=== PATIENT | female | born 1990 | race Caucasian/White ===

== ENCOUNTER → 2016-09-20 | Outpatient (CLI) | payer OTHER ==
[~2016-09-20] MED LIST: ACET-1256 PO; IBUP-1451 PO; PRLSR20 PO
== END | disposition home or self-care (01) ==
LOC: C.LABSPEC 17:17
PROVIDERS: ATTEND Nurse Practitioner Family
DX: R31.9 Hematuria, unspecified (principal)

== ENCOUNTER → 2016-09-22 | Outpatient (CLI) | payer OTHER ==
--- NOTE | 2016-09-22 17:37 | DIAGNOSTIC IMAGING REPORT ---
KUB CLINICAL HISTORY: R10.9 Right flank pain nephrocalcinosis COMPARISON STUDY: No previous studies for comparison. FINDINGS: The soft tissues, psoas shadows, renal outlines and intestinal gas pattern appear normal. There is no evidence for bowel obstruction. No abnormal abdominal calcifications are seen. IMPRESSION: Normal study. Electronically signed by: Santi Willis M.D. 09/22/2016 5:35 PM Dictated Date/Time: 09/22/2016 5:34 PM
== END | disposition home or self-care (01) ==
LOC: C.RAD 17:19
PROVIDERS: ATTEND Nurse Practitioner Adult Health
DX: R10.9 Unspecified abdominal pain (principal)

== ENCOUNTER 2016-09-23 14:38 | Emergency (ER) | payer OTHER ==
[~2016-09-23] VITALS: Ht 172.7 cm; Wt 97.0 kg
[2016-09-23 14:42] VITALS: TEMP 36.6; Ht 172.7 cm; Wt 97.0 kg
[2016-09-23] MEDS ORDERED: SODIUM CHLORIDE 0.9% 1000ML 1,000 ML IV STA (14:58)
[2016-09-23] MEDS ORDERED: ONDANSETRON INJ 2 MG/ML 2 ML VIAL IV STA (14:58)
[2016-09-23] MEDS ORDERED: ACET-1256 PO (15:33)
[2016-09-23] MEDS ORDERED: IBUP-1451 PO (15:33)
[2016-09-23 15:36] LABS: BASO % 0.5 %; BASO ABS # 0.02 K/uL (0-0.2); COMPLETE YES; HEMATOCRIT 35.6 % (37-47); IG% 0.2 %; LYMPH % 20.9 %; LYMPH ABS # 0.92 K/uL (1.2-3.4); MEAN CELL VOLUME 86.8 fL (80-100); MEAN CORPUSCULAR HEMOGLOBIN 28.5 pg (25-34); MEAN CORPUSCULAR HGB CONC 32.9 g/dl (32-36); MEAN PLATELET VOLUME 12.1 fL (7.4-10.4); MONO % 6.8 %; NEUT % 69.6 %; PLATELET COUNT 243 K/uL (130-400)
[2016-09-23 15:55] LABS: ALT/SGPT 57 U/L (12-78); AST/SGOT 27 U/L (15-37); BLOOD UREA NITROGEN 19 mg/dl (7-18); BUN/CREATININE RATIO 25.3 (10-20); CALCIUM 8.7 mg/dl (8.5-10.1); CARBON DIOXIDE 27 mmol/L (21-32); CHLORIDE 107 mmol/L (98-107); CREATININE 0.77 mg/dl (0.60-1.20); GLUCOSE 92 mg/dl (70-99); POTASSIUM 3.7 mmol/L (3.5-5.1); SODIUM 141 mmol/L (136-145)
[2016-09-23 15:58] LABS: ALKALINE PHOSPHATASE 69 U/L (45-117)
[2016-09-23 16:30] LABS: URINE APPEARANCE CLEAR (CLEAR); URINE BILIRUBIN NEG (NEG); URINE COLOR YELLOW; URINE NITRITE NEG (NEG); URINE SPECIFIC GRAVITY 1.006 (1.000-1.030); UROBILINOGEN NEG (NEG)
[2016-09-23 16:32] LABS: MANUAL MICROSCOPIC REQUIRED? NO; REVIEW REQ? NO
--- NOTE | 2016-09-23 16:37 | DIAGNOSTIC IMAGING REPORT ---
BILIARY ULTRASOUND CLINICAL HISTORY: Right upper quadrant abdominal pain COMPARISON STUDY: No previous studies for comparison. FINDINGS: The pancreas appears normal as visualized. Liver appears normal. There is no ductal dilatation. The common bile duct measures 4 mm. The gallbladder is contracted. There is no right-sided hydronephrosis. No bladder abnormalities are visualized. There is a jarrett hepatis lymph node which is felt to be within normal limits in size. IMPRESSION: Normal study Electronically signed by: Sarthak Beard M.D. 09/23/2016 4:35 PM Dictated Date/Time: 09/23/2016 4:34 PM
--- NOTE | 2016-09-23 16:46 | DIAGNOSTIC IMAGING REPORT ---
CHEST 2 VIEWS ROUTINE CLINICAL HISTORY: Pain, radiating to the right upper quadrant COMPARISON STUDY: No previous studies for comparison. FINDINGS: The cardiac and mediastinal contours are normal. There is no evidence of focal pulmonary consolidation. There is no evidence of failure. No pleural effusions are visualized.[ No free air is visualized. IMPRESSION: No active disease in the chest. Electronically signed by: Sarthak Beard M.D. 09/23/2016 4:44 PM Dictated Date/Time: 09/23/2016 4:44 PM
[2016-09-23] MEDS ORDERED: OPTIRAY 320 IV PRN (17:45)
--- NOTE | 2016-09-23 18:17 | DIAGNOSTIC IMAGING REPORT ---
CHEST CTA for PULMONARY ARTERIES CT DOSE: 315.94 mGy.cm HISTORY: Right-sided chest pain. TECHNIQUE: Multiaxial CT images of the chest were performed following the intravenous administration of contrast to evaluate the pulmonary arteries. Maximal intensity projection images were also obtained. COMPARISON STUDY: Abdominal ultrasound 09/23/2016. Chest 09/23/2016. FINDINGS: There is a normal caliber thoracic aorta with no evidence for dissection. There is no evidence for pulmonary embolus. No pleural effusions. No pneumothorax. The liver and spleen are unremarkable. No mediastinal or hilar lymphadenopathy. The central airways are patent. The lungs are clear. Prominent bilateral axillary lymph nodes, right greater than left. Dominant right axillary lymph node measures 2.0 x 1.4 cm. There is overlying skin thickening at the maxilla. IMPRESSION: 1. No evidence for pulmonary embolus. 2. Prominent bilateral axillary lymph nodes with the overlying skin thickening. This could be due to chronic inflammatory change. A neoplastic process is considered less likely. Clinical correlation recommended. Electronically signed by: Sai Rodriguez M.D. 09/23/2016 6:14 PM Dictated Date/Time: 09/23/2016 6:09 PM
[2016-09-23 19:00] VITALS: BP 128/88; PULSE 73; O2SAT 100
--- NOTE | 2016-09-23 22:32 | EMERGENCY ROOM VISIT NOTE ---
History First contact with patient: 14:44 Chief Complaint: NAUSEA Stated Complaint: NAUSEA, RT FLANK AND ABD. PAIN History of Present Illness The patient is a 26 year old female who presents to the Emergency Room with complaints of right upper quadrant abdominal pain radiating into the right flank region. The patient reports that she has had intermittent discomfort for the past few weeks. She now notices that the pain is worse approximate one half hour after eating. She denies any pain radiating into the chest, right shoulder or neck. She denies any personal or family history of gallbladder disease. The patient works in a urology office, and had a KUB x-ray performed yesterday that was normal. She dipped her urine today and noticed some blood in her urine. She denies any history of kidney stones. She denies any recent urinary symptoms. The patient denies any vaginal bleeding, and reports that she is due for her period. She denies . The patient denies any significant alleviating or aggravating factors for her pain except for eating. She currently rates her discomfort an 8 out of 10. She denies any chest pain, shortness of breath or lower back pain. Review of Systems HEENT: Denies dizziness, visual problems, hearing loss, tinnitus. Denies difficulty swallowing or oral lesions. PULMONARY: Denies cough, shortness of breath, sputum production or hemoptysis. CARDIOVASCULAR: Denies chest pain, palpitations, dyspnea on exertion, orthopnea or peripheral edema. GASTROINTESTINAL: Denies diarrhea or constipation, otherwise see history of present illness. GENITOURINARY: Denies dysuria, frequency, urgency or nocturia. NEUROLOGIC: Denies history of epilepsy, CVA, TIA or chronic headaches. MUSCULOSKELETAL: Denies history of joint tenderness/swelling. SKIN: Denies rashes or lesions. PSYCHIATRIC: Denies history of depression or mental illness. ENDOCRINE: Denies history of diabetes or thyroid disorders. Past Medical/Surgical History Medical Problems: (1) No significant past medical history Surgical Problems: (1) No history of previous surgery Family History Unremarkable Social History Smoking Status: Never Smoker Alcohol Use: occasionally Marital Status: Occupation Status: employed Current/Historical Medications Scheduled Acetaminophen (Tylenol), 1,000 MG PO DIRECTED Scheduled PRN Ibuprofen Tab (Motrin), 800 MG PO Q8H PRN for Pain Allergies Coded Allergies: Sulfa Antibiotics (Unverified Allergy, Unknown, HIVES, 09/23/16) Physical Exam Vital Signs Date Time Temp Pulse Resp B/P Pulse Ox O2 Delivery O2 Flow Rate FiO2 09/23/16 19:00 73 18 128/88 100 09/23/16 17:43 74 18 126/63 100 Room Air 09/23/16 15:40 76 18 124/67 100 Room Air 09/23/16 14:42 36.6 82 20 143/88 100 Room Air Physical Exam CONSTITUTIONAL: Healthy and well nourished. Alert and oriented X 3 with positive affect. Patient appears in moderate discomfort from pain. HEENT: Normocephalic, atraumatic. Pupils equal, round and reactive. No scleral icterus or conjunctival injection/pallor. NECK: Full active range of motion without discomfort. No JVD or carotid bruits. RESPIRATORY: Clear to auscultation bilaterally with no wheezing, crackles, rhonchi or stridor. Deep breathing does not worsen her discomfort. CARDIOVASCULAR: Regular rate and rhythm with no murmurs, rubs or gallops. GASTROINTESTINAL: Bowel sounds present in all quadrants. The patient has generalized right upper quadrant tenderness to palpation. Negative Heart sign. Negative CVA tenderness. No abdominal rigidity, guarding or rebound. No palpable hepatosplenomegaly. Negative McBurney's point tenderness. MUSCULOSKELETAL: Full range of motion of all joints without discomfort. INTEGUMENTARY: No rash or other significant dermatologic conditions noted. HEMATOLOGIC: No ecchymosis or petechiae. NEUROLOGIC: No focal neurologic deficits noted. Medical Decision & Procedures ER Provider Diagnostic Interpretation: My interpretation of an ECG shows a normal sinus rhythm of [address] elevation or other conduction abnormalities. My interpretation of a two-view chest x-ray does not show any consolidations, pneumothorax or cardiomegaly. Radiologist report was reviewed. Abdomen ultrasound shows no evidence for gallbladder wall thickening, common bile duct dilation or other acute findings. Radiologist report is as follows: BILIARY ULTRASOUND CLINICAL HISTORY: Right upper quadrant abdominal pain COMPARISON STUDY: No previous studies for comparison. FINDINGS: The pancreas appears normal as visualized. Liver appears normal. There is no ductal dilatation. The common bile duct measures 4 mm. The gallbladder is contracted. There is no right-sided hydronephrosis. No bladder abnormalities are visualized. There is a jarrett hepatis lymph node which is felt to be within normal limits in size. IMPRESSION: Normal study Laboratory Results 09/23/16 15:20 Red Blood Count 4.10, Mean Corpuscular Volume 86.8, Mean Corpuscular Hemoglobin 28.5, Mean Corpuscular Hemoglobin Concent 32.9, Mean Platelet Volume 12.1, Neutrophils (%) (Auto) 69.6, Lymphocytes (%) (Auto) 20.9, Monocytes (%) (Auto) 6.8, Eosinophils (%) (Auto) 2.0, Basophils (%) (Auto) 0.5, Neutrophils # (Auto) 3.06, Lymphocytes # (Auto) 0.92, Monocytes # (Auto) 0.30, Eosinophils # (Auto) 0.09, Basophils # (Auto) 0.02 09/23/16 15:20 Test 09/23/16 15:20 09/23/16 16:46 White Blood Count 4.40 K/uL (4.8-10.8) Red Blood Count 4.10 M/uL (4.2-5.4) Hemoglobin 11.7 g/dL (12.0-16.0) Hematocrit 35.6 % (37-47) Mean Corpuscular Volume 86.8 fL (80-100) Mean Corpuscular Hemoglobin 28.5 pg (25-34) Mean Corpuscular Hemoglobin Concent 32.9 g/dl (32-36) Platelet Count 243 K/uL (130-400) Mean Platelet Volume 12.1 fL (7.4-10.4) Neutrophils (%) (Auto) 69.6 % Lymphocytes (%) (Auto) 20.9 % Monocytes (%) (Auto) 6.8 % Eosinophils (%) (Auto) 2.0 % Basophils (%) (Auto) 0.5 % Neutrophils # (Auto) 3.06 K/uL (1.4-6.5) Lymphocytes # (Auto) 0.92 K/uL (1.2-3.4) Monocytes # (Auto) 0.30 K/uL (0.11-0.59) Eosinophils # (Auto) 0.09 K/uL (0-0.5) Basophils # (Auto) 0.02 K/uL (0-0.2) RDW Standard Deviation 42.0 fL (36.4-46.3) RDW Coefficient of Variation 13.1 % (11.5-14.5) Immature Granulocyte % (Auto) 0.2 % Immature Granulocyte # (Auto) 0.01 K/uL (0.00-0.02) Urine Color YELLOW Urine Appearance CLEAR (CLEAR) Urine pH 6.0 (4.5-7.5) Urine Specific [place] 1.006 (1.000-1.030) Urine Protein NEG (NEG) Urine Glucose (UA) NEG (NEG) Urine Ketones NEG (NEG) Urine Occult Blood TRACE (NEG) Urine Nitrite NEG (NEG) Urine Bilirubin NEG (NEG) Urine Urobilinogen NEG (NEG) Urine Leukocyte Esterase TRACE (NEG) Urine WBC (Auto) 1-5 /hpf (0-5) Urine RBC (Auto) 0-4 /hpf (0-4) Urine Hyaline Casts (Auto) 1-5 /lpf (0-5) Urine Epithelial Cells (Auto) 5-10 /lpf (0-5) Urine Bacteria (Auto) NEG (NEG) Urine Test NEG (NEG) Anion Gap 7.0 mmol/L (3-11) Est Creatinine Clear Calc Drug Dose 134.8 ml/min Estimated GFR () 123.5 Estimated GFR (Non- 106.6 BUN/Creatinine Ratio 25.3 (10-20) Calcium Level 8.7 mg/dl (8.5-10.1) Total Bilirubin 0.3 mg/dl (0.2-1) Direct Bilirubin < 0.1 mg/dl (0-0.2) Aspartate Amino Transf (AST/SGOT) 27 U/L (15-37) Alanine Aminotransferase (ALT/SGPT) 57 U/L (12-78) Alkaline Phosphatase 69 U/L (45-117) Total Creatine Kinase 49 U/L (26-192) Total Protein 7.5 gm/dl (6.4-8.2) Albumin 3.7 gm/dl (3.4-5.0) Lipase 204 U/L (73-393) D-Dimer 530 ug/L FEU (0-500) The above labs were reviewed. CBC, partial renal profile, LFTs and lipase are normal. D-dimer is elevated at 530. Urinalysis is not suggestive of infection. Medications Administered Medications (Trade) Dose Ordered Sig/Jackelyn Route Start Time Stop Time Status Last Admin Dose Admin Sodium Chloride (Nss 1000ml) 1,000 ml @ 999 mls/hr Q1H1M STAT IV 4/20/17 14:58 09/23/16 15:58 DC 09/23/16 15:34 999 MLS/HR Ondansetron HCl (Zofran Inj) 4 mg NOW STAT IV 09/23/16 14:58 09/23/16 15:01 DC 09/23/16 15:34 4 MG Procedure 1. IV hydration: The patient received a liter normal saline bolus 2. IV medications: The patient was initially administered Zofran 4 mg IVP, refusing any additional analgesics. ED Course Patient history and physical exam were performed. Nurse's notes were reviewed. Vital signs were reviewed and grossly normal. IV access was established, and labs were drawn. The patient was hydrated with normal saline, and received IV medications as discussed in the previous Procedure section. The patient initially refused any analgesics. Review of labs shows no significant abnormalities except for an elevated d-dimer. Chest CT angiography did not show any evidence for pulmonary emboli, consolidations or other acute findings. Abdomen ultrasound was also normal. The case was also discussed with Dr. Umanzor, ED attending physician, who agrees with workup and suggest outpatient GI follow-up. The patient was instructed to refrain from caffeine, alcohol and NSAIDs. She refused any prescription analgesics or antiemetics. Dietary restrictions were also discussed with the patient. She was encouraged to follow-up with [facility] gastroenterology for further reevaluation. She was encouraged to return to the emergency department for any progressively worsening pain, fever, persistent vomiting or other concerning symptoms. The patient was happy with plan of care, voiced understanding of all discharge instructions, and denied any significant discomfort or nausea at the time of discharge. Medical Decision Patient history, workup and imaging studies today are not suggestive of cholecystitis, pneumonia, pulmonary embolus, myocardial infarction, pancreatitis , hepatitis, UTI or pyelonephritis. Her abdomen is otherwise benign. I do feel the patient is safe for outpatient follow-up with GI. She may require a HIDA scan to rule out biliary dysfunction. She will return for worsening symptoms. Impression Primary Impression: Right upper quadrant abdominal pain Departure Information Referrals Reji Jansen M.D. (PCP) Patient Instructions My [facility]
[2017-04-05] MEDS ORDERED: PRLSR20 PO (14:00)
== END 2016-09-23 19:00 | disposition home or self-care (01) ==
LOC: C.EDB 14:40
DX: R10.11 Right upper quadrant pain (principal); Z88.2 Allergy status to sulfonamides

== ENCOUNTER → 2016-10-05 | Outpatient (CLI) | payer OTHER ==
[~2016-10-05] MED LIST changes: +SINCALIDE INJ 0 MCG in SODIUM CHLORIDE 0.9% 100ML IV SCH
--- NOTE | 2016-10-05 15:36 | DIAGNOSTIC IMAGING REPORT ---
NUCLEAR HEPATOBILIARY SCAN WITH EJECTION FRACTION IMAGING CLINICAL HISTORY: Right upper quadrant abdominal pain. COMPARISON STUDY: Abdominal ultrasound dated 09/23/2016. TECHNIQUE: Dynamic images of the liver and anterior abdomen were obtained every 5 minutes for a total of 60 minutes following the IV administration of 5.5mCi of technetium 99m Choletec. 1.9 mcg of sincalide was then injected with additional images acquired every 5 minutes for 45 minutes to calculate the gallbladder ejection fraction. FINDINGS: The hepatobiliary scan shows prompt and homogeneous hepatic uptake. There is visualized activity within the intra and extrahepatic biliary tree at 10 minutes, and within the gallbladder at 55 minutes. There is normal biliary to bowel transit, with small bowel visualized by 15 minutes. On the sincalide imaging, the gallbladder ejection fraction was measured at 62%. IMPRESSION: 1. Unremarkable nuclear hepatobiliary scan. There is no scintigraphic evidence of cholecystitis. 2. The gallbladder ejection fraction measured 62% which is normal. Electronically signed by: Castro Sanchez M.D. 10/05/2016 3:35 PM Dictated Date/Time: 10/05/2016 3:33 PM
== END | disposition home or self-care (01) ==
LOC: C.NUCL 12:52
PROVIDERS: ATTEND Registered Nurse
DX: R11.0 Nausea (principal); R14.0 Abdominal distension (gaseous); R10.11 Right upper quadrant pain

== ENCOUNTER → 2016-10-08 | Outpatient (CLI) | payer OTHER ==
[~2016-10-08] MED LIST changes: -SINCALIDE INJ 0 MCG in SODIUM CHLORIDE 0.9% 100ML IV SCH
--- NOTE | 2016-10-08 15:41 | MAMMOGRAPHY REPORT ---
ULTRASOUND OF BOTH BREASTS: 10/08/2016 CLINICAL HISTORY: The patient reports that axillary adenopathy was seen on the recent chest CT. The patient denies any chronic inflammatory or infectious conditions or other chronic medical condition . She denies any recent breast/arm infection. COMPARISON: Chest CT dated 09/23/2016. TECHNIQUE: Real-time ultrasound of bilateral axillary were performed. FINDINGS: Real-time, high resolution targeted ultrasound was performed of bilateral axillae. In th e right axilla, there is an enlarged right axillary lymph node which measures 3.1 x 1.5 x 1.4 cm. T his contains an echogenic fatty hilum but does demonstrate cortical thickening of approximately 4 mm . Another mildly prominent right axillary lymph node is seen which measures 1.8 x 0.6 mm. Targeted ultrasound of the left axilla demonstrates mildly prominent left axillary lymph nodes which have normal fatty armin but demonstrate mild cortical thickening, one measuring 1.9 x 0.7 with appro ximately 4 mm of cortical thickness. The other measures 1.4 cm. Given the patient does not have an y medical condition to account for the adenopathy, ultrasound guided biopsy is recommended. IMPRESSION: ACR BI-RADS CATEGORY 4: SUSPICIOUS - FOLLOW-UP RECOMMENDED Bilateral axillary adenopathy, with the largest lymph node in the right axilla measuring 3.1 cm. Fi ndings are indeterminate and ultrasound guided core needle biopsy of the largest right axillary lymp h node is recommended. These may be reactive although malignancy cannot be excluded. A phone call was made to the physician's office to confirm faxed results were received. The patient was verbally notified of the results. She tentatively scheduled the biopsy before leaving the depa rtment. Mariajose Hermosillo M.D. /:10/08/2016 08:17:48 Hoop Cutter: Mariajose Hermosillo MD, [facility] letter sent: Abnormal 09/08 BI-RADS Code: ACR BI-RADS Category 4: Suspicious
== END | disposition home or self-care (01) ==
LOC: C.MAMM 07:50
PROVIDERS: ATTEND Surgery
DX: R59.0 Localized enlarged lymph nodes (principal)

== ENCOUNTER → 2016-10-15 | Outpatient (CLI) | payer OTHER ==
--- NOTE | 2016-10-15 08:21 | Discharge Instructions ---
Discharge Instructions Procedure Procedure Date: October 15, 2016. Reason for visit: Rt Axillary Node. Discharge Discharge Date: October 15, 2016. Discharge Diagnosis: status post breast biopsy Instructions Activity Recommendations: Additional Limitations (see below) Return to School/Work: no limitations Recommended Home Diet: No Limitations Provider Instructions: ACTIVITY RECOMMENDATIONS: * No lifting, pushing, pulling or exercising the affected side for three days. RETURN TO SCHOOL/WORK: * You may return to work/school after the procedure, but do not perform any strenuous activities for 24 to 48 hours. MEDICATIONS: * Tylenol (two 325 mg) every four to six hours if needed for mild pain (if not allergic to Tylenol). DIET: * Resume previous diet. SPECIAL CARE INSTRUCTIONS: * Keep biopsy site dry for 24 hours. May shower after 24 hours, but do not soak (bathe) incision. * May remove Tegaderm (plastic patch) tomorrow AFTER showering. * Leave the steri-strips on for one week. Allow the steri-strips to fall off by themselves. If not off after one week, you may remove them. You may place a Bandaid crosswise over the strips, if desired. * Apply ice 10 minutes on and 10 minutes off as needed. * Wear a bra at bedtime to sleep more comfortably for 2-3 days. * Your referring physician should have the results after approximately 5 to 7 business days. * Call for unusual bleeding, fever, drainage, etc or if you have any questions call during normal business hours or after hours call Dr Hermosillo, [phone]. FOLLOW UP VISIT: Follow-up with Referring Physician as scheduled. Allergies Coded Allergies: Sulfa Antibiotics (Unverified Allergy, Unknown, HIVES, 09/23/16) Peter Grewal Recommendations: Call your doctor if: * Temperature above 101 degrees * Pain not relieved by pain medicine ordered * There is increased drainage or redness from any incision * You have any unanswered questions or concerns. Your Doctors Instructions noted above were prepared by provider Mariajose Hermosillo. Patient Signature Section: Patient Instructions Signature Page Winnie Robles Patient (or Guardian) Signature/Date: I have read and understand the instructions given to me by my caregivers. Caregiver/RN/Doctor Signature/Date: The above-named patient and/or guardian has received patient instructions on this date. + Original Patient Signature Page (only) stays with chart. Please make copy for patient.
--- NOTE | 2016-10-15 15:07 | MAMMOGRAPHY REPORT ---
ULTRASOUND GUIDED BIOPSY RIGHT BREAST: 10/15/2016 CLINICAL HISTORY: Bilateral axillary adenopathy, with most prominent lymph node seen within the righ t axilla. PATIENT CONSENT: The procedure, risks and benefits were discussed with the patient and informed writ ten consent was obtained. A timeout was performed immediately prior to the procedure. PROCEDURE DESCRIPTION: With ultrasound guidance, aseptic technique, and lidocaine as the local anest hetic (1% lidocaine to anesthetize the skin and 1% lidocaine with epinephrine to anesthetize the bessie per tissues), an abnormal right axillary lymph node was sampled 3 times with a 14-gauge Achieve biop sy needle. Direct pressure was applied to the site immediately post procedure and hemostasis was ac hieved. The patient tolerated the procedure without complication. She was given wound care instruc tions. The specimens were sent to pathology for analysis. COMPARISON: Comparison is made to exam dated: 10/08/2016 ultrasound - [facility]. IMPRESSION: ULTRASOUND GUIDED BIOPSY Ultrasound-guided core needle biopsy of an abnormal right axillary lymph node. The patient will rec eive pathology results from her referring provider. Mariajose Hermosillo M.D. /:10/15/2016 08:31:03 Stallion Manager: Shana REDDY)(M), [facility]
== END | disposition home or self-care (01) ==
LOC: C.MAMM 07:42
PROVIDERS: ATTEND Surgery
DX: R59.9 Enlarged lymph nodes, unspecified (principal); D72.822 Plasmacytosis

== ENCOUNTER → 2016-11-26 | Outpatient (CLI) | payer OTHER | END | disposition home or self-care (01) | LOC: C.LABSPEC 15:59 | PROVIDERS: ATTEND Physician Assistant | DX: N94.10 Unspecified dyspareunia (principal) ==

== ENCOUNTER → 2016-11-26 | Outpatient (CLI) | payer OTHER | LOC: C.PAPS 17:16 | PROVIDERS: ATTEND Physician Assistant | DX: Z12.4 Encounter for screening for malignant neoplasm of cervix (principal) ==

== ENCOUNTER → 2016-12-10 | Outpatient (CLI) | payer OTHER ==
[~2016-12-10] MED LIST changes: -PRLSR20 PO
[2016-12-10 15:44] LABS: HEMATOCRIT 35.1 % (37-47); MEAN CELL VOLUME 86.9 fL (80-100); MEAN CORPUSCULAR HEMOGLOBIN 29.7 pg (25-34); MEAN CORPUSCULAR HGB CONC 34.2 g/dl (32-36); MEAN PLATELET VOLUME 12.6 fL (7.4-10.4); PLATELET COUNT 210 K/uL (130-400); RED BLOOD COUNT 4.04 M/uL (4.2-5.4); WHITE BLOOD COUNT 5.63 K/uL (4.8-10.8)
[2016-12-10 15:58] LABS: ALT/SGPT 26 U/L (12-78); AST/SGOT 18 U/L (15-37); BLOOD UREA NITROGEN 10 mg/dl (7-18); BUN/CREATININE RATIO 15.9 (10-20); CALCIUM 8.8 mg/dl (8.5-10.1); CARBON DIOXIDE 26 mmol/L (21-32); CHLORIDE 108 mmol/L (98-107); CREATININE 0.65 mg/dl (0.60-1.20); GLUCOSE 82 mg/dl (70-99); POTASSIUM 3.6 mmol/L (3.5-5.1); SODIUM 139 mmol/L (136-145)
[2016-12-10 16:01] LABS: ALKALINE PHOSPHATASE 70 U/L (45-117); CHOLESTEROL 121 mg/dl (0-200); CHOLESTEROL/HDL RATIO 2.4; HDL CHOLESTEROL 50 mg/dl; LDL CHOLESTEROL CALCULATED 57 mg/dl; TRIGLYCERIDES 72 mg/dl (0-150); VERY LOW DENSITY LIPOPROT CALC 14 mg/dl
[2016-12-11 07:58] LABS: ESTIMATED AVERAGE GLUCOSE 111 mg/dl; HA1C FLAG Normal (Normal)
== END | disposition home or self-care (01) ==
LOC: C.LAB1850 14:17
PROVIDERS: ATTEND Internal Medicine
DX: Z00.00 Encounter for general adult medical examination without abnormal findings (principal); Z13.220 Encounter for screening for lipoid disorders; Z13.1 Encounter for screening for diabetes mellitus; R31.9 Hematuria, unspecified; M25.50 Pain in unspecified joint; R21 Rash and other nonspecific skin eruption

== ENCOUNTER → 2016-12-21 | Outpatient (CLI) | payer OTHER ==
--- NOTE | 2016-12-21 09:24 | DIAGNOSTIC IMAGING REPORT ---
RIGHT HAND MIN 3 VIEWS ROUTINE CLINICAL HISTORY: M25.50 [id number] Positive CALIN (antinuclear antibody)bothRA Right COMPARISON: None. DISCUSSION: The bones and joint spaces appear intact. There is no evidence of fracture, dislocation or bony disease. There is no evidence for soft tissue swelling. IMPRESSION: Negative study. The above report was generated using voice recognition software. It may contain grammatical, syntax or spelling errors. Electronically signed by: Santi Willis M.D. 12/21/2016 9:23 AM Dictated Date/Time: 12/21/2016 9:23 AM
--- NOTE | 2016-12-21 09:25 | DIAGNOSTIC IMAGING REPORT ---
RIGHT KNEE 3 VIEWS CLINICAL HISTORY: M25.50 [id number] Right pain COMPARISON: None. DISCUSSION: The bones and joint spaces appear intact. There is no evidence of fracture, dislocation or bony disease. There is no evidence for soft tissue swelling. IMPRESSION: Negative study. The above report was generated using voice recognition software. It may contain grammatical, syntax or spelling errors. Electronically signed by: Santi Willis M.D. 12/21/2016 9:24 AM Dictated Date/Time: 12/21/2016 9:23 AM
--- NOTE | 2016-12-21 09:44 | DIAGNOSTIC IMAGING REPORT ---
HAND MIN 3 VIEWS ROUTINE CLINICAL HISTORY: 26 years-old Female presenting with arthralgia. TECHNIQUE: Frontal, oblique, and lateral views of the left hand were obtained. COMPARISON: None. FINDINGS: Chronic ulnar styloid fracture fragment. No acute fracture or malalignment. No radiopaque foreign body. No significant degenerative change. Soft tissues grossly normal. IMPRESSION: 1. No acute osseous injury of the left hand. No significant degenerative change. Electronically signed by: Bay Esteves M.D. 12/21/2016 9:42 AM Dictated Date/Time: 12/21/2016 9:41 AM
[2016-12-21 13:00] LABS: URINE APPEARANCE CLEAR (CLEAR); URINE BILIRUBIN NEG (NEG); URINE COLOR YELLOW; URINE NITRITE NEG (NEG); URINE PH 6.5 (4.5-7.5); URINE SPECIFIC GRAVITY 1.016 (1.000-1.030); UROBILINOGEN NEG (NEG)
[2016-12-21 13:06] LABS: MANUAL MICROSCOPIC REQUIRED? NO; REVIEW REQ? NO
[2016-12-25 03:40] LABS: ANTI-CENTROMERE AB <1.0 NEG AI (<1.0 NEG); ANTI-SS-A <1.0 NEG AI (<1.0 NEG); ANTI-SS-B <1.0 NEG AI (<1.0 NEG); DNA ds CRITHIDIA POSITIVE (NEGATIVE); MICROSOMAL AB <1 IU/ML (<9); Sm Antibody <1.0 NEG AI (<1.0 NEG)
[2016-12-28 08:35] LABS: ANA TITER > OR = 1:1280 TITER (<1:40)
== END | disposition home or self-care (01) ==
LOC: C.RAD1850 08:37
PROVIDERS: ATTEND Internal Medicine Rheumatology
DX: R76.8 Other specified abnormal immunological findings in serum (principal); M79.641 Pain in right hand; M79.642 Pain in left hand; M25.561 Pain in right knee

== ENCOUNTER → 2017-01-19 | Outpatient (CLI) | payer OTHER ==
--- NOTE | 2017-01-19 15:19 | MAMMOGRAPHY REPORT ---
ULTRASOUND OF RIGHT BREAST: 01/19/2017 CLINICAL HISTORY: 26-year-old woman presents with persistent pain radiating down her arm, from axilla to elbow, after a benign ultrasound guided biopsy of a lymph node in the right axilla performed 10/04. She reports experiencing similar pain after the first biopsy sample. It is now intermittent abnormal sensation since the biopsy. COMPARISON: Comparison is made to exams dated: 10/15/2016 ultrasound biopsy and 10/08/2016 ultrasound - [facility]. FINDINGS: Targeted ultrasound was performed in the right axilla and also down the medial aspect of [facility] right arm to the mid humeral shaft level to assess the area of abnormal sensation pointed out by [facility] patient. Within the right axilla inferiorly, a prominent lymph node is again identified, with a c ortical thickness measuring up to 8 mm. This represents the biopsied lymph node that yielded benign pathology. There is no evidence of an additional abnormal lymph node, a cyst or other mass. No drai nable fluid collection is identified. No suspicious mass or fluid collection is seen at the level of the inner arm mid humeral shaft in the area of pain with scanning. IMPRESSION: ACR BI-RADS CATEGORY 2: BENIGN Stable prominent lymph node in the right axilla which was previously biopsied and yielded benign path ology. There is no other suspicious mass or evidence of a drainable fluid collection. No suspicious sonographic abnormality to explain the abnormal sensation radiating down the right arm from axilla t o elbow. The patient is describing what seems to be nerve pain and with therefore recommend consulta tion at the pain clinic. These results and recommendations were discussed with the patient at the time of the exam. Iwona Mejias M.D. ay/:01/19/2017 13:05:52 Sports Official: Dr. Iwona Mejias, [facility] letter sent: Normal 1/2 BI-RADS Code: ACR BI-RADS Category 2: Benign
== END | disposition home or self-care (01) ==
LOC: C.MAMM 11:11
PROVIDERS: ATTEND Surgery
DX: N64.4 Mastodynia (principal); R59.0 Localized enlarged lymph nodes

== ENCOUNTER → 2017-02-10 | Outpatient (CLI) | payer OTHER ==
[2017-02-10 09:40] LABS: BASO % 0.3 %; BASO ABS # 0.02 K/uL (0-0.2); COMPLETE YES; EOS % 2.8 %; HEMATOCRIT 38.9 % (37-47); IG% 0.3 %; LYMPH % 17.2 %; LYMPH ABS # 1.05 K/uL (1.2-3.4); MEAN CELL VOLUME 88.2 fL (80-100); MEAN CORPUSCULAR HEMOGLOBIN 29.5 pg (25-34); MEAN CORPUSCULAR HGB CONC 33.4 g/dl (32-36); MEAN PLATELET VOLUME 12.8 fL (7.4-10.4); MONO % 10.1 %; NEUT % 69.3 %; PLATELET COUNT 221 K/uL (130-400); RED BLOOD COUNT 4.41 M/uL (4.2-5.4); WHITE BLOOD COUNT 6.12 K/uL (4.8-10.8)
[2017-02-10 10:05] LABS: ALT/SGPT 31 U/L (12-78); AST/SGOT 18 U/L (15-37); CREATININE 0.75 mg/dl (0.60-1.20)
== END | disposition home or self-care (01) ==
LOC: C.LAB 07:22
PROVIDERS: ATTEND Internal Medicine Rheumatology
DX: M35.9 Systemic involvement of connective tissue, unspecified (principal); R76.8 Other specified abnormal immunological findings in serum; Z79.899 Other long term (current) drug therapy

== ENCOUNTER → 2017-03-04 | Outpatient (CLI) | payer OTHER ==
[2017-03-04 15:10] LABS: URINE APPEARANCE CLEAR (CLEAR); URINE BILIRUBIN NEG (NEG); URINE COLOR YELLOW; URINE NITRITE NEG (NEG); URINE SPECIFIC GRAVITY 1.019 (1.000-1.030); UROBILINOGEN NEG (NEG)
[2017-03-04 15:11] LABS: MANUAL MICROSCOPIC REQUIRED? NO; REVIEW REQ? NO
== END | disposition home or self-care (01) ==
LOC: C.LAB1850 12:18
PROVIDERS: ATTEND Internal Medicine Rheumatology
DX: R31.9 Hematuria, unspecified (principal); M35.9 Systemic involvement of connective tissue, unspecified; R76.8 Other specified abnormal immunological findings in serum

== ENCOUNTER → 2017-04-14 | Outpatient (CLI) | payer OTHER ==
[~2017-04-14] MED LIST changes: -ACET-1256 PO; -IBUP-1451 PO; +PRLSR20 PO
[2017-04-14 09:56] LABS: ALT/SGPT 39 U/L (12-78); AST/SGOT 24 U/L (15-37); BLOOD UREA NITROGEN 11 mg/dl (7-18); BUN/CREATININE RATIO 13.5 (10-20); CARBON DIOXIDE 25 mmol/L (21-32); CHLORIDE 109 mmol/L (98-107); CREATININE 0.82 mg/dl (0.60-1.20); GLUCOSE 86 mg/dl (70-99); POTASSIUM 4.2 mmol/L (3.5-5.1); SODIUM 142 mmol/L (136-145)
[2017-04-14 09:59] LABS: ESTIMATED AVERAGE GLUCOSE 108 mg/dl; HA1C FLAG Normal (Normal)
[2017-04-14 10:01] LABS: ALKALINE PHOSPHATASE 74 U/L (45-117); BETA-HYDROXYBUTYRATE 1.07 mg/dL (0.2-2.81)
== END | disposition home or self-care (01) ==
LOC: C.LAB 07:28
PROVIDERS: ATTEND Internal Medicine
DX: E16.2 Hypoglycemia, unspecified (principal)

== ENCOUNTER → 2017-04-19 | Day surgery (SDC) | payer OTHER ==
[2017-04-05 14:01] VITALS: BMI 33.0
[~2017-04-19] VITALS: Ht 172.7 cm; Wt 99.1 kg
[~2017-04-19] MED LIST changes: +LIDOCAINE HCL 2% 2 ML VIAL (20MG/ML) ONE; +MIDAZOLAM HCL 1 MG/ML 2ML VIAL ONE; +PROPOFOL IV EMULSION 10 MG/ML 20 ML VIAL IV ONE; +SODIUM CHLORIDE 0.9% 500ML 500 ML IV ONE
[2017-04-19 08:29] VITALS: Ht 172.7 cm; Wt 99.1 kg
--- NOTE | 2017-04-19 08:37 | Endo History and Physical ---
History & Physical Date of Service: Apr 19, 2017. Chief Complaint: Abdominal pain Referring Physician: Dr. Pandya History of Present Illness 27 yo CF who presents for EGD secondary to abdominal pain. Past Surgical History Hx Cardiac Surgery: No Hx Internal Defibrillator: No Hx Pacemaker: No Hx Abdominal Surgery: Yes (APPENDECTOMY) Hx of Implantable Prosthesis: No Hx Post-Op Nausea and Vomiting: No Hx Cancer Surgery: No Hx Thoracic Surgery: No Hx Orthopedic: Yes (R ANKLE RECONSTRUCTION) Hx Urinary Tract Surgery: No Family History Colon CA Social History Smoking Status: Never Smoker Hx Substance Use: No Hx Alcohol Use: No (RARELY) Allergies Coded Allergies: Amoxicillin (Verified Allergy, Unknown, PRESSURE IN HEAD AND EYES, 04/12/17 ) Sulfa Antibiotics (Verified Allergy, Unknown, HIVES, 04/19/17) Current Medications Reported Home Medications Medications Dose Route/Sig Max Daily Dose Days Date Category Prilosec (Omeprazole) 20 Mg Capcr 20 Mg PO BID 04/05/17 Reported Vital Signs Weight (Kilograms): 99.09 Height (Feet): 5 Height (Inches): 8 Date Time Temp Pulse Resp B/P (MAP) Pulse Ox O2 Delivery O2 Flow Rate FiO2 04/19/17 08:28 36.5 72 18 100/61 (74) 99 Room Air Physical Exam General Appearance: WD/WN, no apparent distress Respiratory/Chest: Auscultation: breath sounds normal Cardiovascular: Heart Auscultation: RRR Abdomen: Bowel Sounds: normal Inspection & Palpation: soft, non-distended, no tenderness, guarding & rebound Assessment and Plan Assessment: 27 yo CF who presents for EGD secondary to abdominal pain. Plan: Proceed with EGD.
--- NOTE | 2017-04-19 09:04 | GI REPORT ---
Procedure Date: 04/19/2017 8:51 AM Procedure: Upper GI endoscopy Indications: Abdominal pain in the right upper quadrant Medicines: Monitored Anesthesia Care Complications: No immediate complications. Estimated Blood Loss: Estimated blood loss: none. Procedure: Pre-Anesthesia Assessment: - Prior to the procedure, a History and Physical was performed, and patient medications and allergies were reviewed. The patient's tolerance of previous anesthesia was also reviewed. The risks and benefits of the procedure and the sedation options and risks were discussed with the patient. All questions were answered, and informed consent was obtained. Prior Anticoagulants: The patient has taken no previous anticoagulant or antiplatelet agents. ASA Grade Assessment: II - A patient with mild systemic disease. After reviewing the risks and benefits, the patient was deemed in satisfactory condition to undergo the procedure. After obtaining informed consent, the endoscope was passed under direct vision. Throughout the procedure, the patient's blood pressure, pulse, and oxygen saturations were monitored continuously. The scope was introduced through the mouth, and advanced to the second part of duodenum. The upper GI endoscopy was accomplished without difficulty. The patient tolerated the procedure well. Findings: The esophagus was normal. A small hiatus hernia was present. Biopsies were taken with a cold forceps in the gastric antrum for Helicobacter pylori testing. The examined duodenum was normal. Impression: - Normal esophagus. - Small hiatus hernia. - Normal examined duodenum. - Biopsies were taken with a cold forceps for Helicobacter pylori testing. Recommendation: - Resume previous diet. - Continue present medications. - Await pathology results. - Return to GI clinic as previously scheduled. Ifeanyi Jacobs DO 04/19/2017 9:04:05 AM This report has been signed electronically. Note Initiated On: 04/19/2017 8:51 AM I attest to the content of the Intraoperative Record and orders documented therein, exceptions below
--- NOTE | 2017-04-19 09:05 | Discharge Instructions ---
Endoscopy Patient Instructions Date / Procedure(s) Performed Apr 19, 2017. EGD Allergy Information Coded Allergies: Amoxicillin (Verified Allergy, Unknown, PRESSURE IN HEAD AND EYES, 04/12/17 ) Sulfa Antibiotics (Verified Allergy, Unknown, HIVES, 04/19/17) Discharge Date / Findings Apr 19, 2017. Hiatal hernia Gastric antrum biopsies Medication Instructions OK to resume all medications today as prescribed Reported Home Medications Medications Dose Route/Sig Max Daily Dose Days Date Category Prilosec (Omeprazole) 20 Mg Capcr 20 Mg PO BID 04/05/17 Reported Provider Instructions Activity Restrictions - No exercising or heavy lifting for 24 hours. - Do not drink alcohol the day of the procedure. - Do not drive a car or operate machinery until the day after the procedure. - Do not make any important decisions or sign important papers in 24 hours after the procedure. Following Day: - Return to full activity which may include returning to work/school. Diet Start your diet with liquids and light foods (jello, soup, juice, toast). Then eat your usual diet if not nauseated. Treatment For Common After Affects For mild abdominal pain, bloating, or excessive gas: - Rest - Eat lightly - Lie on right side Follow-Up Information Follow-up with DR HICKS as scheduled Anesthesia Information What You Should Know You have had a procedure that required some medicine to reduce anxiety and discomfort. This treatment is called moderate sedation. After receiving the treatment, you may be sleepy, but you will be able to breathe on your own. The effects of the treatment may last for several hours. Follow these instructions along with Activity/Diet recommendations noted above: * Do NOT do anything where dizziness or clumsiness would be dangerous. * Rest quietly at home today, then you can be up and about tomorrow. * Have a responsible person stay with you the rest of today. * You may have had an I.V. today. If so, you may take the dressing off later today. Recommendations Call your doctor if: * Trouble breathing * Continuous vomiting for more than 24 hours * Temperature above 101 degrees * Severe abdominal pain or bloating * Pain not relieved by pain medicine ordered * There is increased drainage or redness from any incision * A large amount of rectal bleeding greater than 2-3 tablespoons. (If you had a polyp/s removed or have hemorrhoids, a small amount of blood - from the rectum is to be expected.) * You have any unanswered questions or concerns. IN THE EVENT OF A SERIOUS EMERGENCY, GO TO THE NEAREST EMERGENCY ROOM Your discharge instructions were prepared by provider Ifeanyi Jacobs. Patient Instructions Signature Page Winnie Robles Patient (or Guardian) Signature/Date: I have read and understand the instructions given to me by my caregivers. Caregiver/RN/Doctor Signature/Date: The above-named patient and/or guardian has received patient instructions on this date. + Original Patient Signature Page (only) stays with chart. Please make copy for patient.
--- NOTE | 2017-04-19 09:15 | Anesthesiology Progress Note ---
Anesthesia Post Op Note Date & Time Apr 19, 2017 at 09:15 Vital Signs Pain Intensity: 0 Vital Signs Past 12 Hours Date Time Temp Pulse Resp B/P (MAP) Pulse Ox O2 Delivery O2 Flow Rate FiO2 04/19/17 09:00 64 24 104/58 (73) 97 Room Air 04/19/17 08:28 36.5 72 18 100/61 (74) 99 Room Air Notes Mental Status: alert / awake / arousable, participated in evaluation Pt Amnestic to Procedure: Yes Nausea / Vomiting: adequately controlled Pain: adequately controlled Airway Patency, RR, SpO2: stable & adequate BP & HR: stable & adequate Hydration State: stable & adequate Anesthetic Complications: no major complications apparent Awake, doing well. VSS.
[2017-04-19 09:30] VITALS: BP 108/70; PULSE 58; O2SAT 100
== END | disposition home or self-care (01) ==
LOC: C.GI 08:11
PROVIDERS: ATTEND Internal Medicine
DX: K29.50 Unspecified chronic gastritis without bleeding (principal); R10.11 Right upper quadrant pain; K44.9 Diaphragmatic hernia without obstruction or gangrene; Z80.0 Family history of malignant neoplasm of digestive organs

== ENCOUNTER → 2017-06-20 | Outpatient (CLI) | payer OTHER ==
[~2017-06-20] MED LIST changes: -LIDOCAINE HCL 2% 2 ML VIAL (20MG/ML) ONE; -MIDAZOLAM HCL 1 MG/ML 2ML VIAL ONE; -PROPOFOL IV EMULSION 10 MG/ML 20 ML VIAL IV ONE; -SODIUM CHLORIDE 0.9% 500ML 500 ML IV ONE
[2017-06-20 18:17] LABS: INFLUENZA B ANTIGEN Neg for Influ B (NEG)
== END ==
LOC: C.LAB1850 16:30
PROVIDERS: ATTEND Family Medicine Adult Medicine
DX: J06.9 Acute upper respiratory infection, unspecified (principal)

== ENCOUNTER → 2017-06-22 | Outpatient (CLI) | payer OTHER ==
[2017-06-22 09:54] LABS: CORTISOL AM*DRAW BETWEEN 7-9AM 13.39 mcg/dl (4.30-22.40)
[2017-06-23 11:40] LABS: MICROSOMAL AB 1 IU/ML (<9)
== END | disposition home or self-care (01) ==
LOC: C.LAB1850 07:29
PROVIDERS: ATTEND Internal Medicine Endocrinology, Diabetes & Metabolism
DX: E16.2 Hypoglycemia, unspecified (principal); M79.1 Myalgia; E01.0 Iodine-deficiency related diffuse (endemic) goiter

== ENCOUNTER → 2017-06-24 | Outpatient (CLI) | payer OTHER ==
--- NOTE | 2017-06-24 14:59 | DIAGNOSTIC IMAGING REPORT ---
ULTRASOUND OF THE THYROID GLAND CLINICAL HISTORY: Thyromegaly. COMPARISON STUDY: Chest CT dated 09/23/2016. TECHNIQUE: Real-time, grayscale, and color flow sonography of the thyroid gland is performed utilizing a high-frequency linear transducer. Images are reviewed in the transverse and longitudinal planes. FINDINGS: Right lobe: The right lobe of the thyroid gland is normal in size and homogeneous in echotexture, measuring 4.9 x 1.3 x 1.7 cm. Left lobe: The left lobe of the thyroid gland is normal in size and homogeneous in echotexture, measuring 4.2 x 1.1 x 1.2 cm. Isthmus: The thyroid isthmus is normal in appearance and measures 0.2 cm in AP diameter. IMPRESSION: Unremarkable sonographic assessment of the thyroid gland. Electronically signed by: Castro Sanchez M.D. 06/24/2017 2:58 PM Dictated Date/Time: 06/24/2017 2:57 PM
== END | disposition home or self-care (01) ==
LOC: C.ULTR 14:29
PROVIDERS: ATTEND Internal Medicine Endocrinology, Diabetes & Metabolism
DX: E01.0 Iodine-deficiency related diffuse (endemic) goiter (principal)

== ENCOUNTER → 2017-10-13 | Outpatient (CLI) | payer OTHER | END | disposition home or self-care (01) | LOC: C.LABPBG 08:12 | PROVIDERS: ATTEND Internal Medicine Endocrinology, Diabetes & Metabolism | DX: E55.9 Vitamin D deficiency, unspecified (principal) ==

== ENCOUNTER → 2018-01-02 | Outpatient (CLI) | payer OTHER | END | disposition home or self-care (01) | LOC: C.LABPBG 12-13 09:47 | PROVIDERS: ATTEND Physician Assistant | DX: Z02.89 Encounter for other administrative examinations (principal) ==

== ENCOUNTER → 2018-01-02 | Outpatient (CLI) | payer OTHER ==
[2018-01-02 13:52] LABS: BASO % 0.3 %; BASO ABS # 0.01 K/uL (0-0.2); EOS % 1.8 %; EOS ABS # 0.07 K/uL (0-0.5); HEMATOCRIT 38.5 % (37-47); HEMOGLOBIN 13.2 g/dL (12.0-16.0); IG# 0.01 K/uL (0.00-0.02); LYMPH % 22.7 %; MEAN CELL VOLUME 88.7 fL (80-100); MEAN CORPUSCULAR HEMOGLOBIN 30.4 pg (25-34); MEAN CORPUSCULAR HGB CONC 34.3 g/dl (32-36); MEAN PLATELET VOLUME 13.1 fL (7.4-10.4); MONO % 7.6 %; NEUT % 67.3 %; NEUT ABS # 2.67 K/uL (1.4-6.5); PLATELET COUNT 213 K/uL (130-400); RED CELL DISTRIBUTION WIDTH CV 13.4 % (11.5-14.5); RED CELL DISTRIBUTION WIDTH SD 43.5 fL (36.4-46.3); WHITE BLOOD COUNT 3.96 K/uL (4.8-10.8)
[2018-01-02 14:19] LABS: ALBUMIN 3.8 gm/dl (3.4-5.0); ALKALINE PHOSPHATASE 65 U/L (45-117); ALT/SGPT 34 U/L (12-78); AST/SGOT 19 U/L (15-37); CREATININE 0.74 mg/dl (0.60-1.20); TOTAL PROTEIN 7.5 gm/dl (6.4-8.2)
== END | disposition home or self-care (01) ==
LOC: C.LABPBG 09:21
PROVIDERS: ATTEND Internal Medicine Rheumatology
DX: Z51.81 Encounter for therapeutic drug level monitoring (principal); Z79.899 Other long term (current) drug therapy; R76.8 Other specified abnormal immunological findings in serum

== ENCOUNTER → 2018-01-11 | Outpatient (CLI) | payer OTHER ==
[2018-01-17 09:04] LABS: ANA SCREEN TC 249X POSITIVE (NEGATIVE); ANTI-SS-A <1.0 NEG AI (<1.0 NEG); ANTI-SS-B <1.0 NEG AI (<1.0 NEG); COMPLEMENT C4** TC 44982E 13 MG/DL (15-57)
[2018-01-19 10:02] LABS: ANA TITER > OR = 1:1280 TITER (<1:40)
== END | disposition home or self-care (01) ==
LOC: C.LAB1850 15:42
PROVIDERS: ATTEND Internal Medicine Rheumatology
DX: R76.8 Other specified abnormal immunological findings in serum (principal)

== ENCOUNTER → 2018-01-20 | Outpatient (CLI) | payer OTHER | END | disposition home or self-care (01) | LOC: C.LABSPEC 14:15 | PROVIDERS: ATTEND Family Medicine | DX: J02.9 Acute pharyngitis, unspecified (principal) ==